=== PATIENT | male | born 1955 | race African-American/Black ===

== ENCOUNTER 2018-09-03 21:37 | Emergency (ER) | payer MEDICAID ==
[~2018-09-03] VITALS: Ht 188 cm; Wt 104.0 kg
[2018-09-03 22:02] VITALS: BP 168/80
[2018-09-04] MEDS ORDERED: KETOROLAC 30MG/ML VIAL IM ONE (04:00)
[2018-09-04] MEDS ORDERED: METHOCARBAMOL 500MG TABLET PO ONE (04:00)
[2018-09-04 05:37] LABS: CLARITY URINE CLEAR (CLEAR); COLOR URINE YELLOW (YELLOW); KETONES URINE 1+ (NEGATIVE); LEUKOCYTE ESTERASE URINE NEGATIVE (NEGATIVE); NITRITE URINE NEGATIVE (NEGATIVE); OCCULT BLOOD URINE NEGATIVE (NEGATIVE); PH URINE 6.5 (4.5-8.0); PROTEIN URINE NEGATIVE (NEGATIVE); SPECIFIC GRAVITY URINE 1.018 (1.005-1.030)
[2018-09-04] MEDS ORDERED: HYDROCODONE/ACETAMINOPHEN 5/325MG TABLET PO ONE (06:00)
== END 2018-09-04 09:00 | disposition home or self-care (01) ==
LOC: ER 21:37
DX: G89.29 Other chronic pain (principal); M54.42 Lumbago with sciatica, left side; F17.200 Nicotine dependence, unspecified, uncomplicated; M79.604 Pain in right leg; R20.2 Paresthesia of skin
CPT/HCPCS: 81003; 93971; 96372; 99284; J1885